=== PATIENT | female | born 1965 | race Caucasian/White ===

== ENCOUNTER 2021-06-06 15:29 | Emergency (ER) | payer OTHER, SELFPAY ==
[2021-06-06 15:59] VITALS: BP 134/85; PULSE 84; RESP 16; TEMP 36.9; O2SAT 96; BMI 21.2
[2021-06-06] MEDS: predniSONE 20 MG TABLET 60 MG PO (17:04)
[2021-06-06] MEDS: Loratadine 10 MG TABLET PO (17:04)
--- NOTE | 2021-06-06 18:48 | ED.SKABFB ---
HPI - Skin/Abscess/Foreign Bdy General Chief complaint: Skin/Abscess/Foreign Body Stated complaint: leigha saldana Time Seen by Provider: 06/06/21 16:52 History of Present Illness HPI narrative: Patient complains of itchy blistering poison les rash after gardening on both hands No difficulty breathing no throat swelling Related Data Previous Rx's Medication Instructions Recorded diphenhydramine HCl 25 mg capsule 50 mg PO BEDTIME PRN #14 cap 06/06/21 (Benadryl) loratadine 10 mg tablet 10 mg PO DAILY PRN #14 tab 06/06/21 (Allerclear) prednisone 10 mg tablet 10 mg PO DAILY 8 Days #8 tab 06/06/21 Allergies Allergy/AdvReac Type Severity Reaction Status Date / Time No Known Allergies Allergy Unverified 07/13/20 16:03 [No Known Allergies*] Review of Systems Review of Systems: Positive for bilateral hand rash Negatives are no fever no chills no dizziness no weakness no headache no neck pain no difficulty breathing or swallowing no shortness of breath no chest pain no joint pains Yes all other systems are reviewed and are negative PMFSH Past Medical History Source: nursing notes reviewed Social History Social History Advance Directives: No Advance Directives Information Provided: Yes Physical Exam Vital Signs: Vital Signs: Last Vital Signs Temp 98.4 F 06/06/21 15:59 Pulse 84 06/06/21 15:59 Resp 16 06/06/21 15:59 BP 134/85 06/06/21 15:59 Pulse Ox 96 06/06/21 15:59 Body Mass Index 21.2 General appearance no acute distress The pharynx is clear with no swelling, voice is normal swallowing normally The chest is clear to auscultation bilateral Skin exam there is a blistering rash on the back of both hands and in the web space between thumb and index finger, there is no redness no warmth no fluctuance and rashes consistent with a poison les rash Extremities full range of motion x4 Course Course Course Narrative: Patient with poison les is treated with tapering course of prednisone and is otherwise well appearing with no sign of infection Discharge Plan Discharge Clinical Impression: Poison les Patient Disposition: Home, Self-Care Additional Instructions: We are treating the poison les rash with prednisone which reduces inflammation You can use Claritin daily for itch If needed at night if itching is bad you can take 2 Benadryl Return any time any worse condition or concerns Prescriptions: New prednisone 10 mg tablet 10 mg PO DAILY 8 Days Qty: 8 RF: 0 loratadine [Allerclear] 10 mg tablet 10 mg PO DAILY PRN (Reason: Itch and rash) Qty: 14 RF: 0 diphenhydramine HCl [Benadryl] 25 mg capsule 50 mg PO BEDTIME PRN (Reason: itching) Qty: 14 RF: 0 Stand Alone Forms: Work/School Release Interventions: ED Discharge Assessment Last Done: 06/06/21 17:14 Discharge Date/Time: 06/06/21 17:14
== END 2021-06-06 17:14 | disposition home or self-care (01) ==
PROVIDERS: Emergency Provider Emergency Medicine; PCP Internal Medicine
DX: L23.7 Allergic contact dermatitis due to plants, except food (principal); R21 Rash and other nonspecific skin eruption; Z79.899 Other long term (current) drug therapy
CPT/HCPCS: 99283

== ENCOUNTER 2022-09-01 19:29 | Emergency (ER) | payer OTHER, SELFPAY ==
[2022-09-01 20:14] VITALS: BP 140/84; PULSE 74; RESP 16; TEMP 36.6; O2SAT 97; BMI 21.2
[2022-09-01 21:44] VITALS: BP 121/76; PULSE 76; RESP 16; TEMP 36.4; O2SAT 98
[2022-09-02 00:30] VITALS: BP 127/69; PULSE 76; RESP 18; TEMP 36.8; O2SAT 97
--- NOTE | 2022-09-02 01:48 | ED.SKABFB ---
HPI - Skin/Abscess/Foreign Bdy General Chief complaint: Skin/Abscess/Foreign Body Stated complaint: tick behind r ear Time Seen by Provider: 09/02/22 01:37 Source: patient Mode of arrival: ambulatory Limitations: no limitations History of Present Illness HPI narrative: Patient comes in the emergency room complaining that she pulled a tick out of her back and her right ear a few hours ago. Patient states that she was doing some yd work, states that she got most of the tick out, however she is concerned there is a little bit of redness in her back. Patient denies fever chills. Related Data Previous Rx's Medication Instructions Recorded diphenhydramine HCl 25 mg capsule 50 mg PO BEDTIME PRN itching #14 06/06/21 (Benadryl) caps loratadine 10 mg tablet 10 mg PO DAILY PRN Itch and rash 06/06/21 (Allerclear) #14 tabs prednisone 10 mg tablet 10 mg PO DAILY 8 days #8 tabs 06/06/21 Allergies Allergy/AdvReac Type Severity Reaction Status Date / Time No Known Allergies Allergy Unverified 07/13/20 16:03 [No Known Allergies*] Review of Systems Review of Systems: Constitutional : No Weight loss, No Fever, No Chills, No Night Sweats, No Fatigue, No Malaise ENT/Mouth : No Hearing loss, No Ear Pain, No Nasal Congestion, No Sinus Pain, No Hoarseness, No sore throat, No Rhinorrhea, No Swallowing Difficulty Eyes: No Eye Pain, No Swelling, No Redness, No Foreign Body, No Discharge, No Vision Changes Cardiovascular : No Chest Pain, No SOB, No Dyspnea on Exertion, No Orthopnea, No Edema, No Palpitations Respiratory : No Cough, No Sputum, No Wheezing, No Smoke Exposure, No Dyspnea Gastrointestinal : No Nausea, No Vomiting, No Diarrhea, No Constipation, No abdominal Pain, No Hematochezia, No Melena Genitourinary : no irregular bleeding, No Dysuria, No Urinary Frequency, No Hematuria, No Urinary Incontinence, No Urgency, No Flank Pain, No Urinary Flow Changes, No Hesitancy Musculoskeletal : No joint pain, No Myalgias, No Joint Swelling Skin : Complaining of a tick in the back on the right side and behind her right ear Neuro : No Weakness, No Numbness, No Paresthesias, No Loss of Consciousness, No Dizziness, No Headache Psych : No Anxiety/Panic, No Depression, No SI/HI/AH/VH, No Social Issues, Heme/Lymph: No Bruising, No Bleeding,No Lymphadenopathy Endocrine : No Polyuria, No Polydipsia, No Temperature Intolerance COUNT INCLUDES THE [facility] Social History Social History Advance Directives: No Advance Directives Information Provided: Yes Physical Exam Vital Signs: Vital Signs: Last Vital Signs Temp 98.3 F 09/02/22 00:30 Pulse 76 09/02/22 00:30 Resp 18 09/02/22 00:30 BP 127/69 09/02/22 00:30 Pulse Ox 97 09/02/22 00:30 O2 Del Method 09/02/22 00:30 BMI result Body Mass Index 21.2 Const: Other: Appearance: Alert. Oriented X3. No acute distress. Patient seems somewhat intoxicated Eyes: Pupils equal, round and reactive to light. ENT: Pharynx normal. Neck: Normal inspection. Neck supple. No lymph nodes noted. No crepitus CVS: Normal heart rate and rhythm. Pulses normal. Normal S1 and S2 Respiratory: No respiratory distress. Breath sounds normal. No Wheezing. No rales Abdomen: Soft and nontender. No rigidity. No distention. Skin: Skin warm and dry. There is a 3 mm x 3 mm benigno in the upper back, mildly erythematous, there is nothing behind both ears. Extremities: No lower extremity edema. No Lacerations. No Rash Neuro: Oriented X 3. No motor deficit. No sensory deficit. Moving all extremities. No slurred speech. CN 2 through 12 grossly intact, patient is able to walk with steady gait Psych: calm, cooperative, normal affect Course Course Course Narrative: Patient was given 200 mg of doxycycline, topical bacitracin. Patient is possibly intoxicated. However, patient is alert and oriented x4, has steady unassisted gait, and follow normal conversation, no slurred speech. At this time, there is no reason to Section 12 patient. Patient states that she will walk home, and feels steady doing so.. Discharge Plan Discharge Clinical Impression: Tick bite Patient Disposition: Home, Self-Care Instructions: Tick Bite (ED) Additional Instructions: Please follow-up with your primary care physician tomorrow. If you have any worsening or new symptoms, please return to the emergency room or call 911 Prescriptions: No Action prednisone 10 mg tablet 10 mg PO DAILY 8 Days Qty: 8 0RF Rx Instructions: Prednisone taper 8 day course 60 mg by mouth once a day for 2 days then 40 mg once a day by mouth for 2 days then 20 mg once a day by mouth for 2 days then 10 mg once a day by mouth for 2 days Dispense quantity sufficient loratadine [Allerclear] 10 mg tablet 10 mg PO DAILY PRN (Reason: Itch and rash) Qty: 14 0RF diphenhydramine HCl [Benadryl] 25 mg capsule 50 mg PO BEDTIME PRN (Reason: itching) Qty: 14 0RF Interventions: ED Discharge Assessment Last Done: 09/02/22 02:04 Discharge Date/Time: 09/02/22 02:06
--- NOTE | 2022-09-02 01:58 | PC.NURSE ---
pt has been seen drinking beers while on hospital property. pt has a steady gait that was viewed by dr hernandez who says she is ready to be discharged to herself. pt has been loud crying yelling at staff, arguing with boyfriend. pt has been discharged to the waiting room to find a sober rider home per this rn.
--- NOTE | 2022-09-02 02:01 | PC.NURSE ---
pt was in the bathroom and had difficutly opening the door. security present and assisted pt. pt insist that she is not intoxicted and with the providers word the pt is ready for discharge.
== END 2022-09-02 02:06 | disposition home or self-care (01) ==
PROVIDERS: Emergency Provider Emergency Medicine; PCP Internal Medicine
DX: S20.461A Insect bite (nonvenomous) of right back wall of thorax, initial encounter (principal); W57.XXXA Bitten or stung by nonvenomous insect and other nonvenomous arthropods, initial encounter; Y93.H1 Activity, digging, shoveling and raking; Y92.017 Garden or yard in single-family (private) house as the place of occurrence of the external cause; Y99.9 Unspecified external cause status
CPT/HCPCS: 99283

== ENCOUNTER 2025-01-28 14:43 | Emergency (ER) | payer OTHER, SELFPAY ==
[2025-01-28 15:43] VITALS: BP 148/90; PULSE 82; RESP 18; TEMP 37; O2SAT 98; BMI 21.4
--- NOTE | 2025-01-28 15:44 | ED.GENADULT ---
HPI - General Adult General Chief complaint: Animal Bite Stated complaint: Tick Near L Arm Pit Time Seen by Provider: 01/28/25 15:51 Source: patient Mode of arrival: ambulatory Limitations: no limitations History of Present Illness ED Provider: Lin Garay PA-C HPI narrative: Patient is a 60 year old assigned female at with no reported medical history presenting to the emergency department today with a left axillary tick. Patient states that she was working in a garden / back yard a few days ago and just a few minutes ago she noticed a tick in her left axilla. Patient denies any dizziness, lightheadedness, abdominal pain, nausea, vomiting, fever, chills, blurry vision, double vision, loss of vision, chest pain, difficulty breathing, shortness of breath, back pain, night sweats, pain with urination, increased urinary frequency, increased urinary urgency, blood in her urine or stool, syncope or a near syncopal episode, recent trauma or falls, bowel incontinence, bladder incontinence, or any other complaints at this time. Location: left and upper extremity Relieving factors: none Exacerbating factors: none Associated symptoms: denies other symptoms Treatments prior to arrival: none Related Data Previous Rx's ?Medication ?Instructions ?Recorded diphenhydramine HCl 25 mg capsule 50 mg (2 x 25 mg) PO BEDTIME PRN 06/06/21 (Benadryl) itching #14 caps loratadine 10 mg tablet 10 mg PO DAILY PRN Itch and rash 06/06/21 (Allerclear) #14 tabs prednisone 10 mg tablet 10 mg PO DAILY 8 days #8 tabs 06/06/21 doxycycline hyclate 100 mg tablet 100 mg PO BID 7 days #14 tabs 01/28/25 Allergies Allergy/AdvReac Type Severity Reaction Status Date / Time No Known Allergies Allergy Verified 01/28/25 15:45 [No Known Allergies*] Review of Systems Constitutional: Constitutional: Reports no additional constitutional complaints, Denies chills, Denies fever(s) and Denies night sweats Eyes: Eyes: Reports no additional eye complaints, Denies blurry vision, Denies change in vision, Denies diplopia, Denies eye discharge, Denies loss of vision and Denies eye pain ENT: Denies dizziness Cardiovascular: Cardiovascular: Reports no additional cardiovascular complaints, Denies chest pain, Denies lightheadedness, Denies Loss of Consciousness and Denies dyspnea Respiratory: Respiratory: Reports no additional respiratory complaints and Denies dyspnea Gastrointestinal: Gastrointestinal: Reports no additional gastrointestinal complaints, Denies abdominal pain, Denies melena, Denies hematochezia, Denies change in bowel habits and Denies change in stool character Genitourinary: Genitourinary: Denies hematuria, Denies urinary frequency, Denies dysuria, Denies urinary incontinence, Denies urinary hesitancy and Denies urinary urgency Musculoskeletal: Musculoskeletal: Reports no additional musculoskeletal complaints, Denies numbness and Denies tingling Integumentary/Breasts: Comments: tick in left axilla Neurologic: Denies dizziness, Denies loss of vision, Denies numbness and Denies tingling Psychiatric: Psychiatric: Reports no additional psychiatric complaints Endocrine: Endocrine: Reports no additional endocrine complaints Hematologic/Lymphatic: Hematologic/Lymphatic: Reports no additional hematologic/lymphatic complaints Allergic/Immunologic: Allergic/Immunologic: Reports no additional allergic/immunologic complaints PMFSH Past Medical History Attestation statement: The following information was validated with the patient. Source: old records reviewed and nursing notes reviewed Social History Social History Advance Directives: No Advance Directives Information Provided: Yes Physical Exam ED Vital Signs: Vital Signs - 24 hr 01/28/25 15:43 01/28/25 16:37 Temperature 98.6 F 98.6 F Pulse Rate 82 82 Respiratory Rate 18 18 Blood Pressure 148/90 H 148/90 H Pulse Oximetry 98 98 Oxygen Delivery Method Room Air Room Air BMI result Body Mass Index 21.4 Const General: cooperative, no acute distress, alert and awake Nutritional Appearance: well nourished Orientation/consciousness: patient oriented x3 Limitations: no limitations [facility] Head: Yes normal to inspection and Yes atraumatic Ears: hearing grossly normal bilaterally and external ears normal General nose exam: Normal external nose present, no nasal discharge noted and no epistaxis Face and sinus: Yes normal facial exam, No abrasion and No laceration Mouth: Normal oral and palatal mucosa present, no drooling and no muffled voice Eyes General: appearance normal, both eyes and all related structures Periorbital: periorbital findings normal Eyelids: Yes eyelids normal Conjunctivae: conjunctivae normal Pupils: Equal, round and reactive pupils present EOM: EOMs intact bilaterally Neck Neck: Yes normal visual inspection, Yes full ROM and Yes no lymphadenopathy Chest Chest/axillae images: 1. intact tick present with head buried - bruising around the tick head Resp Effort & Inspection: normal respiratory effort and able to speak in complete sentences GI Inspection: Yes normal to inspection Neuro General: patient oriented x3, moves all extremities and CN's II-XI intact bilaterally Cranial nerves: Yes Equal, round and reactive pupils present Cognition (Neuro): normal cognition Extrem General: Yes normal to inspection, Yes full ROM and Yes capillary refill normal Psych Appearance: grossly normal Mental Status: mental status grossly normal Affect: normal affect Attitude: cooperative Thought process: Normal thought process present Thought content: Normal thought content present Insight: Good insight present (Psych) Course Course Course Narrative: RME performed by Lin Garay PA-C. Patient is a 60 year old assigned female at presenting to the emergency department with a tick in her left axilla. Patient states that she found a tick in her left axilla today. Detailed physical exam and review of systems are deferred to the administration clerk. Labs ordered. Patient placed back in the waiting room pending room availability and results. Medications Administered Discontinued Medications Generic Name Dose Route Start Last Admin Trade Name Freq PRN Reason Stop Dose Admin Lidocaine HCl 5 ml 01/28/25 15:45 01/28/25 16:08 Lidocaine Hcl 1 % Mpf 5 Ml Vial SUBCUT 01/28/25 15:46 5 ml ONCE ONE Administration Procedures Foreign Body Removal Time Out Performed: yes Site: left (axilla) Description of foreign body: other (tick) Sedation/Analgesia: none Technique: manual removal and removal with forceps Confirmed by:: direct visualization Complications: none Post-procedure exam: awake, alert Neurovascular: no change from pre-procedure Medical Decision Making Medical Decision Making MDM Narrative: Patient is a 60 year old assigned female at with no reported medical history presenting to the emergency department today with a left axillary tick. Patient's physical exam was as noted in the physical exam portion of this note. Patient's tick borne panel and lyme disease testing is pending. I explained my physical exam findings to the patient. I answered all questions asked by the patient. I removed the tick, without incident, and entirely intact. Given the patient's unknown length of time with this tick embedded, will treat with doxy prophylactically. I stressed the importance of the patient taking her medication as directed (either prescribed or as the over the counter packaging recommends). I stressed the importance of the patient following up with her primary care provider. I stressed the importance of the patient returning to the emergency department immediately if her symptoms were to worsen or if she were to develop any dizziness, shortness of breath, difficulty breathing, chest pain, blurry vision, loss of vision, nausea, vomiting, abdominal pain, fever, chills, back pain, or any other complaints. Patient verbalized agreement and understanding with this treatment plan and discharge. Differential Diagnosis Differential Diagnoses: The differential diagnosis associated with the presentation includes Tick removal Lyme disease Tick borne illness Admission/Observation Consideration of admission/observation: Escalation of care including admission/observation considered Patient would have been admitted to the hospital had her clinical presentation warranted hospital admission. Lab Data MDM Lab Attestation statement: I reviewed the patient's lab results. My interpretation of these studies and their corresponding values is that they are grossly normal. Labs: Lab Results 01/28/25 Range/Units 15:56 A.phagocytophil DNA PCR NOT DETECTED (NOT DETECTED) Babesia microti DNA PCR NOT DETECTED (NOT DETECTED) Borrelia sp DNA (PCR) NOT DETECTED (NOT DETECTED) Borrelia miyamotoi (PCR) NOT DETECTED (NOT DETECTED) E.chaffeensis DNA (PCR) NOT DETECTED (NOT DETECTED) Tick-borne Disease PCR SEE NOTE Prescription Management I considered prescription management with: Antibiotic (patient prescribed prophylactic antibiotic given her presentation) Discharge Plan Discharge Clinical Impression: Tick bite Patient Disposition: Home, Self-Care Instructions: Tick Bite (ED) Additional Instructions: Take your medication as prescribed. Stay out of direct sunlight while taking this medication. We will call you if your Lyme or tick borne testing is positive. Follow up with your primary care provider. Return to the emergency department immediately if your symptoms worsen or if you develop any numbness, tingling, dizziness, shortness of breath, difficulty breathing, chest pain, blurry vision, loss of vision, nausea, vomiting, abdominal pain, fever, chills, back pain, or any other complaints. Please see the information below about our Patient Portal. If you are not yet enrolled in the [facility] Patient Portal, you will receive an enrollment email invitation following your visit to any [facility] setting. You may also self-enroll in the Patient Portal by visiting our website: [email or web address] The following information is required to access the Patient Portal: - Your [facility] Medical Record Number - Your personal home email address (must match what is in your electronic medical record, Registration staff can assist with this) - Name - Date of Capabilities of the Patient Portal: - Message some providers - View upcoming appointments - Access your health summary, medical history, and visit history - View current conditions and allergies - View procedure and lab results - View your medications, including guidelines, side effects, and precautions - Complete pre-appointment questionnaires requested by your provider - Ready summary reports of your office visits and procedures To access the Patient Portal Mobile [employer], follow these directions: - Search [employer] in the [employer] Store or [employer] Store - Download the The[employer]ma - Search for [facility] - Enter your login/password Prescriptions: New doxycycline hyclate 100 mg tablet 100 mg PO BID 7 Days Qty: 14 0RF No Action prednisone 10 mg tablet 10 mg PO DAILY 8 Days Qty: 8 0RF Rx Instructions: Prednisone taper 8 day course 60 mg by mouth once a day for 2 days then 40 mg once a day by mouth for 2 days then 20 mg once a day by mouth for 2 days then 10 mg once a day by mouth for 2 days Dispense quantity sufficient loratadine [Allerclear] 10 mg tablet 10 mg PO DAILY PRN (Reason: Itch and rash) Qty: 14 0RF diphenhydramine HCl [Benadryl] 25 mg capsule 50 mg PO BEDTIME PRN (Reason: itching) Qty: 14 0RF Referrals: William Cui MD [Primary Care Provider] - Interventions: ED Discharge Assessment Last Done: 01/28/25 16:37 Discharge Date/Time: 01/28/25 16:43 Print Language: Vietnamese
[2025-01-28] MEDS: Lidocaine HCl 1 % MPF 5 ML VIAL SUBCUT (16:08)
[2025-01-28 16:37] VITALS: BP 148/90; PULSE 82; RESP 18; TEMP 37; O2SAT 98
[2025-01-29 14:37] LABS: A. Phagocytphilium DNA,RT-PCR NOT DETECTED (NOT DETECTED); Babesia Microti DNA, RT-PCR NOT DETECTED (NOT DETECTED); Borrelia Miyamotoi,DNA RT-PCR NOT DETECTED (NOT DETECTED); E.Chaffeensis DNA RT-PCR NOT DETECTED (NOT DETECTED); Lyme(Borrelia ssp)DNA RT-PCR NOT DETECTED (NOT DETECTED)
[2025-01-31 18:49] LABS: Lyme Abs Screen <0.90 index
== END 2025-01-28 16:43 | disposition home or self-care (01) ==
PROVIDERS: Physician Assistant Medical; Emergency Provider Emergency Medicine; PCP Internal Medicine
DX: S40.862A Insect bite (nonvenomous) of left upper arm, initial encounter (principal); S40.852A Superficial foreign body of left upper arm, initial encounter; W57.XXXA Bitten or stung by nonvenomous insect and other nonvenomous arthropods, initial encounter; Y93.9 Activity, unspecified; Y92.9 Unspecified place or not applicable; Y99.8 Other external cause status; Z79.899 Other long term (current) drug therapy
CPT/HCPCS: 10120; 36415; 86617; 86618; 87468; 87469; 87478; 87484; 87798; 99282; 99284; J2003

== ENCOUNTER 2025-04-20 14:57 | Outpatient (AMB) | payer OTHER, SELFPAY ==
--- NOTE | 2025-04-20 15:06 | MHC.PC.OV ---
Vital Signs 04/20/25 15:09 Height 5 ft 4.96 in Weight 139 lb 8 oz BMI 23.2 BP 120/72 Blood Pressure Location Lt brachial Position Sitting Pulse 93 Pulse Source Pulse Oximeter Temp 97.5 F Temp Source Temporal Artery Scan Pulse Oximetry (%) 98 Oxygen Delivery Method Room Air Intake Visit Reasons: establish care Intake Note: Patient is a new patient here to establish care for Complaint of dizziness. Transferring care from Dr Cortez ([facility] [place]) . Medical records have been requested and have not received. Drafter Topographical Required: No Accompanied by: Self / Same As Patient Allergies No Known Allergies (No Known Allergies*) Allergy (Verified 04/20/25 15:23) Medication List - Last Reconciled 04/20/25 by Mee Morton PA-C No Known Home Meds Tobacco use date assessed: 04/20/25 Dental Screening Dental Screen Date: 04/20/25 Did you have a dental visit in the last 12 months?: No Did you have a dental problem in the last 6 months where you did not have access to dental care?: No Was dental information given to patient?: Patient declined HPI establish care HPI Details 60 year old female coming to the office for the first time. Presenting with a wellness visit and evaluation of eyelid ptosis, dizziness, and fatigue. The patient noticed her eyelid drooping recently, described as 'droop eye.' The patient reports experiencing dizziness described as a wave, not room spinning, occurring over the past few weeks. The dizziness is not associated with nausea, vomiting, or chest pain and lasts only a few seconds. The patient reports feeling tired, which she attributes to changes in her routine and possibly aging. She has been semi-retired, caring for her brother, and describes her lifestyle as active, involving daily activities and visiting her granddaughter weekly. The patient has had a mammogram in the past and is aware of the need for routine screenings, including bone density and colorectal cancer screening. 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 1. Little interest or pleasure in doing things: not at all 2. Feeling down, depressed, or hopeless: not at all 3. Trouble falling or staying asleep, or sleeping too much: not at all 4. Feeling tired or having little energy: nearly every day 5. Poor appetite or overeating: not at all 6. Feeling bad about yourself - or that you are a failure or have let yourself or your family down: not at all 7. Trouble concentrating on things, such as reading the newspaper or watching television: not at all 8. Moving or speaking so slowly that other people could have noticed. Or the opposite - being so fidgety or restless that you have been moving around a lot more than usual: not at all 9. Thoughts that you would be better off or of hurting yourself in some way: not at all Total score: 3 Depression Screening Interpretation: Negative Depression Screening Done: Yes [id number] - PHQ-9 Billing: Yes Source: Developed by Drs. Florentin Morales, Elsa Church, Jamey Hines and colleagues, with an educational afshan from [employer] Thrive Questionnaire Date Thrive assessed: 04/20/25 I am a: Parent/Caregiver What is your living situation today?: I have a steady place to live Within the past 12 months, did the food you bought not last and you didn't have the money to get more?: Never true Within the past 12 months, did you worry whether your food would run out before you got money to buy more?: Never true Do you have trouble paying for medicines?: No Do you have trouble getting transportation to medical appointments?: No Do you have trouble paying your heating and electricity bill?: No Do you have trouble taking care of your child, family member or friend?: No Do you have trouble with day-to-day activities such as bathing, preparing meals, shopping, managing finances, etc.?: No Are you currently unemployed and looking for a job?: No Are you interested in more education?: No Please select the resources that you would like help with: None Currently or been in a relationship where the following occur: I choose not to answer THRIVE Score: 0 AUDIT C Alcohol Use Questionnaire (AUDIT-C) 1. How often do you have a drink containing alcohol?: 4 or more times a week 2. How many drinks containing alcohol do you have on a typical day when you are drinking?: 5 or 6 3. How often do you have six or more drinks on one occasion?: Weekly Total Score: 9 AV-7 AMB Questionnaire AV-7 Date AV - 7 assessed: 04/20/25 Feeling nervous, anxious, or on edge: 0 = Not at all Not being able to stop or control worryin = Not at all Worrying too much about different things: 0 = Not at all Trouble relaxin = Not at all Being so restless that it is hard to sit still: 0 = Not at all Becoming easily annoyed or irritable: 0 = Not at all Feeling afraid as if something awful might happen: 0 = Not at all Total AV-7 score (0-4 normal; 5-9 mild; 10-14 moderate; 15-21 severe): 0 Source: Developed by Drs. Florentin Morales, Elsa Church, Jamey Hines and colleagues, with an educational afshan from [employer] Review of Systems Const Denies body aches, Denies chills, Denies fever(s), Denies headache(s) and Denies poor appetite Eyes Reports no additional complaints ENT Denies dysphagia, Denies dizziness, Denies headache(s) and Denies odynophagia Card Denies chest pain, Denies syncope, Denies edema, Denies irregular heart rhythm, Denies lightheadedness and Denies dyspnea Resp Denies cough and Denies dyspnea GI Denies abdominal pain, Denies constipation, Denies dysphagia, Denies diarrhea, Denies nausea, Denies odynophagia and Denies vomiting Reports no additional complaints Musc Reports no additional complaints and Denies abnormal gait Skin/Breast Reports system reviewed and no additional complaints, except as documented Neuro Denies abnormal gait, Denies dizziness, Denies syncope and Denies headache(s) Psych Reports no additional complaints Physical exam (Primary Care) Vital Signs: Last Vital Signs Temp 97.5 F 04/20/25 15:09 Pulse 93 04/20/25 15:09 BP 120/72 04/20/25 15:09 Pulse Ox 98 04/20/25 15:09 Oxygen Delivery Method Room Air 04/20/25 15:09 BMI result Body Mass Index 23.2 Tobacco/Smoking Status: Tobacco use Status Tobacco use date assessed 04/20/25 04/20/25 15:19 Patient Tobacco Use Status Never used Tobacco 04/20/25 15:19 e-Cigarette/Vaping Use Never Used 04/20/25 15:19 PHQ-9: PHQ-9 Score PHQ-9: Total score 3 04/20/25 15:31 Depression Screening Interpretation: Negative Thrive Assessment: Date of Thrive Assessment Date Thrive assessed 04/20/25 04/20/25 15:19 Currently or been in a relationship where the following occur: I choose not to answer Const General: cooperative, healthy appearing, comfortable and no acute distress Orientation/consciousness: patient oriented x3 HENMT Head: Yes normocephalic Ears: hearing grossly normal bilaterally General nose exam: Normal external nose present Eyes General: appearance normal, both eyes and all related structures Conjunctivae: conjunctivae normal Neck Neck: Yes full ROM and Yes no lymphadenopathy Resp Effort & Inspection: normal respiratory effort Auscultation: clear to auscultation bilaterally, no crackles, no rales, no rhonchi and no wheezes Cardio Rate: regular rate Rhythm: regular rhythm Skin General skin exam: no rashes or lesions noted Neuro General: patient oriented x3 Gait exam (Neuro): Normal gait present Extrem General: Yes normal to inspection, Yes full ROM and No edema Psych Affect: normal affect Attitude: cooperative Insight: Good insight present (Psych) Judgement: Good judgement present (Psych) Coding Level of Care Code New Pt Level 4 (28714) Diagnoses Hypersomnolence G47.10 Lightheadedness R42 Screening for hypercholesterolemia Z13.220 Ptosis of eyelid H02.409 Mammogram declined Z53.20 Colon cancer screening declined Z53.20 Additional Codes PHQ-9 - 00772 - PHQ-9 Billing: Yes ([id number]) Assessment & Plan Assessment & Plan (1) Hypersomnolence: Code(s): G47.10 - Hypersomnia, unspecified Category: Medical Plan: PLan to obtain blood work for further evaluation. Patient is declining sleep study today. The patient is advised to maintain good sleep hygiene and consider [id number] options like melatonin or magnesium for sleep support. (2) Lightheadedness: Code(s): R42 - Dizziness and giddiness Category: Medical Plan: The plan includes ordering blood work to investigate the causes of fatigue and dizziness, including thyroid, kidney, liver function tests, electrolytes, and complete blood count. An EKG will also be performed to assess cardiac function. (3) Screening for hypercholesterolemia: Code(s): Z13.220 - Encounter for screening for lipoid disorders Category: Medical Plan: blood work ordered (4) Ptosis of eyelid: Code(s): H02.409 - Unspecified ptosis of unspecified eyelid Category: Medical Plan: Not currently causing a problem for the patient. Plan to discuss further interventions at next visit. (5) Mammogram declined: Code(s): Z53.20 - Procedure and treatment not carried out because of patient's decision for unspecified reasons Category: Medical Plan: Declining mammogram today. Understands the risks of not having these studies performed. (6) Colon cancer screening declined: Code(s): Z53.20 - Procedure and treatment not carried out because of patient's decision for unspecified reasons Category: Medical Plan: Strongly encouraged to undergo this testing however patient continues to decline. Understands the risks of not having these studies performed. Plan Preventative care measures include discussing the importance of routine mammograms, bone density screenings, and colorectal cancer screenings. The patient is encouraged to follow up in three months for a comprehensive annual physical examination. This note was constructed using voice recognition software. While every effort has been made to ensure accuracy and liquor bridge operator helper, still areas may have been included sometimes these areas may affect the content or meeting of the given symptoms. Total time spent caring for the patient today was 30 minutes. This includes time spent before the visit reviewing the chart, time spent during the visit, and time spent after the visit and documentation. Patient was informed and verbally consented to the use of an ambient scribe for clinic note documentation during this visit. Orders: Orders Complete Blood Count Auto Diff 04/20/25 R42 - Dizziness and giddiness, Z00.00 - Encounter for general adult medical examination without abnormal findings Vitamin B12 and Folate 04/20/25 R42 - Dizziness and giddiness, Z13.21 - Encounter for screening for nutritional disorder ECG 12 lead EKG 04/20/25 R42 - Dizziness and giddiness Comprehensive Met. Panel 04/20/25 R42 - Dizziness and giddiness, Z00.00 - Encounter for general adult medical examination without abnormal findings Free T4 (Free Thyroxine) 04/20/25 R42 - Dizziness and giddiness, Z00.00 - Encounter for general adult medical examination without abnormal findings TSH reflex Free T4 04/20/25 R42 - Dizziness and giddiness, Z00.00 - Encounter for general adult medical examination without abnormal findings Vitamin D 25-OH Total 04/20/25 R42 - Dizziness and giddiness, Z00.00 - Encounter for general adult medical examination without abnormal findings Lipid Panel 04/20/25 Z13.220 - Encounter for screening for lipoid disorders Lyme IgG/IgM w/reflex to WB 04/20/25 G47.10 - Hypersomnia, unspecified XR DEXA axial skeleton 04/20/25 Z78.0 - Asymptomatic menopausal state Medications: Discontinued diphenhydramine HCl (Benadryl) Discontinued Reason: Patient Completed Course 50 mg (2 x 25 mg) PO BEDTIME PRN 14 caps 0RF itching loratadine (Allerclear) Discontinued Reason: Patient Completed Course 10 mg PO DAILY PRN 14 tabs 0RF Itch and rash doxycycline hyclate Discontinued Reason: Patient Completed Course 100 mg PO BID 7 days 14 tabs 0RF
[2025-04-20 15:09] VITALS: BP 120/72; PULSE 93; TEMP 36.4; O2SAT 98; BMI 23.2
== END 2025-04-20 15:49 | disposition home or self-care (01) ==
DX: G47.10 Hypersomnia, unspecified (principal); R42 Dizziness and giddiness; Z13.220 Encounter for screening for lipoid disorders; H02.409 Unspecified ptosis of unspecified eyelid; Z53.20 Procedure and treatment not carried out because of patient's decision for unspecified reasons

== ENCOUNTER → 2025-04-20 14:57 | Outpatient (BNVA) | payer OTHER, SELFPAY | DX: R42 Dizziness and giddiness (principal); H02.409 Unspecified ptosis of unspecified eyelid; G47.10 Hypersomnia, unspecified; Z78.0 Asymptomatic menopausal state | CPT/HCPCS: 96127; 99202 ==

== ENCOUNTER 2025-04-21 09:03 | Outpatient (REF) | payer OTHER, SELFPAY ==
[2025-04-21 09:17] LABS: MANUAL DIFF FLAG NO
[2025-04-21 09:45] LABS: Basophils Absolute Auto 0.1 X10*3/uL (0.0-0.2); Basophils Percent Auto 1.6 % (0-2); Eosinophils Absolute Auto 0.1 X10*3/uL (0.0-0.4); Eosinophils Percent Auto 3.1 % (0-4); Hematocrit 39.7 % (37.0-47.0); Hemoglobin 13.6 g/dl (12.0-16.0); Imm Gran Abs Auto 0.01 X10*3/uL (0.00-0.03); Imm Gran Pct Auto 0.3 % (0.0-0.4); Lymphocytes Absolute Auto 1.1 X10*3/uL (1.2-4.9); Lymphocytes Percent Auto 27.9 % (20-40); Mean Corpuscular HGB Conc 34.3 g/dl (31.0-35.0); Mean Corpuscular Hemoglobin 31.9 pg (27.0-33.0); Mean Corpuscular Volume 93.2 fL (80.0-98.0); Monocytes Absolute Auto 0.3 X10*3/uL (0.1-1.2); Monocytes Percent Auto 8.3 % (2-11); Neutrophils Absolute Auto 2.3 x10*3/uL (2.0-8.3); Neutrophils Percent Auto 58.8 % (45-73); Platelet Count 243 X10*3/uL (160-400); Red Blood Count 4.26 X10*6/uL (4.20-5.50); Red Cell Distribution Width 11.9 % (11.0-16.0); White Blood Count 3.9 X10*3/uL (4.8-10.8)
[2025-04-21 10:21] LABS: Alanine Aminotransferase 28 U/L (0-31); Albumin Level 4.4 g/dL (3.5-5.0); Alkaline Phosphatase 84 U/L (39-117); Anion Gap 12 (12-20); Aspartate Amino Transferase 33 U/L (5-31); Bilirubin Total 0.9 mg/dL (0.0-1.0); Blood Urea Nitrogen 16 mg/dL (9-16); Calcium 9.2 mg/dL (8.4-10.2); Carbon Dioxide 25 mmol/L (22-29); Chloride 105 mmol/L (96-108); Cholesterol 207 mg/dL (<200); Estimated Glomerular Filt Rate > 60; Glucose Random 100 mg/dL (60-115); HDL Cholesterol 74 mg/dL (>40); LDL Cholesterol Calculated 113 mg/dL (<100); Sodium 138 mmol/L (135-145); Total Protein 7.2 g/dL (6.5-8.0); Triglycerides 100 mg/dL (<150)
[2025-04-21 10:38] LABS: Free T4 (Free Thyroxine) 0.85 ng/dL (0.71-1.85); TSH reflex Free T4 5.36 uIU/mL (0.32-4.0); Vitamin D 25-OH Total 18.7 ng/mL (>30)
[2025-04-21 10:42] LABS: Folate 12.4 ng/mL (> or = 4.0); Vitamin B12 < 148 pg/mL (200-900)
[2025-04-22 12:03] LABS: Lyme Abs Screen <0.90 index
== END 2025-04-21 09:04 | disposition home or self-care (01) ==
LOC: HO.LAB 09:03
PROVIDERS: PCP Internal Medicine
DX: Z13.220 Encounter for screening for lipoid disorders (principal)
CPT/HCPCS: 36415; 80053; 80061; 82306; 82607; 82746; 84439; 84443; 85025; 86617; 86618